=== PATIENT | female | born 1960 | race Caucasian/White ===

== ENCOUNTER 2021-07-13 09:29 | Day surgery (SDC) | payer BC ==
[~2021-07-13] VITALS: Ht 162.6 cm; Wt 76.0 kg
[~2021-07-13 09:29] MED LIST: CLINDAMYCIN 600MG PREMIX 50 ML IV PRN; CLINDAMYCIN 900MG PREMIX 50 ML IV PRN; CLINDAMYCIN PREMIX 900 MG/50 ML BAG IV ONE; HYDROmorphone 2 MG/ML INJ. IVP PRN; IV RINGERS,LACTATED 1000ML 1,000 ML IV SCH; MORPHINE SULFATE 2 MG/ML INJ. IVP PRN; PROCHLORPERAZINE 10 MG/2 ML VIAL. IVP PRN; fentaNYL PF VIAL 100 MCG/2 ML VIAL IVP PRN
[2021-07-13 09:52] VITALS: BP 133/66
[2021-07-13] MEDS ORDERED: FLUT9.9S NS (09:57)
[2021-07-13] MEDS ORDERED: ZOLP5TAB5 PO (09:57)
[2021-07-13] MEDS ORDERED: RIVA20TA2 PO (09:57)
[2021-07-13] MEDS ORDERED: TIZA-75 PO (09:57)
[2021-07-13] MEDS ORDERED: SULF500T36 PO (09:57)
[2021-07-13] MEDS ORDERED: FOLI0.8T5 PO (09:57)
[2021-07-13] MEDS ORDERED: OLAN1CAP15 PO (09:57)
[2021-07-13] MEDS ORDERED: AMLO-186 PO (09:57)
[2021-07-13] MEDS ORDERED: LEVO75TA5 PO (09:57)
[2021-07-13] MEDS ORDERED: TRAM50TA PO (09:57)
[2021-07-13] MEDS ORDERED: LOSA-73 PO (09:57)
[2021-07-13] MEDS ORDERED: ICOS1CAP PO (09:57)
[2021-07-13] MEDS ORDERED: CALC500T30 PO (09:58)
[2021-07-13 10:07] LABS: BASO % 1 % (0-3); EOS # 0.2 x10^3/uL (0.0-0.7); EOS % 4 % (0-3); HEMATOCRIT 40.5 % (36.0-47.0); HEMOGLOBIN 14.2 g/dL (12.0-15.5); LYMPH # 1.7 x10^3/uL (1.0-4.8); LYMPH % 37 % (24-48); MEAN CORPUSCULAR HEMOGLOBIN 34 pg (25-35); MEAN CORPUSCULAR HGB CONC 35 g/dL (31-37); MEAN CORPUSCULAR VOLUME 96 fL (79-100); MONO # 0.5 x10^3/uL (0.0-1.1); MONO % 12 % (0-9); NEUT # 2.2 x10^3/uL (1.8-7.7); NEUT % 47 % (31-73); PLATELET COUNT 232 x10^3/uL (140-400); RED CELL DISTRIBUTION WIDTH 13.5 % (11.5-14.5); WHITE BLOOD COUNT 4.7 x10^3/uL (4.0-11.0)
[2021-07-13 10:19] LABS: CALCIUM 9.4 mg/dL (8.5-10.1); CREATININE 0.8 mg/dL (0.6-1.0); GFR 73.2; POTASSIUM 3.8 mmol/L (3.5-5.1)
[2021-07-13 10:25] LABS: ALBUMIN 4.1 g/dL (3.4-5.0); TOTAL BILIRUBIN 0.5 mg/dL (0.2-1.0); TOTAL PROTEIN 8.1 g/dL (6.4-8.2)
[2021-07-13] MEDS ORDERED: DEXAMETHASONE SOD PHOS 4 MG/ML VIAL ONE ×2 (11:01→11:17)
[2021-07-13] MEDS ORDERED: LIDOCAINE 2% PF 5 ML VIAL. ONE (11:01)
[2021-07-13] MEDS ORDERED: PROPOFOL 10 MG/ML (20ML) VIAL. IV ONE (11:01)
[2021-07-13] MEDS ORDERED: SEVOFLURANE 31 TO 60 MINUTES. IH ONE (11:01)
[2021-07-13] MEDS ORDERED: fentaNYL PF VIAL 100 MCG/2 ML VIAL ONE (11:01)
[2021-07-13] MEDS ORDERED: ONDANSETRON PF 4 MG/2 ML VIAL. ONE (11:01)
[2021-07-13] MEDS ORDERED: BUPIVACAINE MPF 0.5% 30 ML VIAL. ONE ×2 (11:02→13:00)
[2021-07-13] MEDS ORDERED: LIDOCAINE 1% Multi-Dose 20 ML VIAL. ONE (11:02)
[2021-07-13] MEDS ORDERED: POVIDONE-IODINE 10% TOPICAL OINTMENT 28GM TUBE. TP ONE (11:17)
[2021-07-13] MEDS ORDERED: PHENYLEPHRINE in 0.9% NACL PF 1 MG/10 ML SYRINGE. IV ONE ×2 (11:43→12:17)
[2021-07-13] MEDS ORDERED: LIDOCAINE 1% Multi-Dose 20 ML VIAL. INJ ONE (11:48)
[2021-07-13] MEDS ORDERED: BUPIVACAINE MPF 0.5% 30 ML VIAL. IJ ONE ×2 (11:48→13:00)
[2021-07-13] MEDS ORDERED: ePHEDrine PF IN SALINE 50 MG/10 ML SYRINGE. IV ONE (12:23)
--- NOTE | 2021-07-13 13:29 | PDOC4 ---
OPERATIVE NOTE: surgeon: Ashutosh Agile Tester: Bernarda Navarrete Pre operative diagnosis: Hallux rigidus right foot Post operative diagnosis: same Procedure: arthrodesis 1st metatarsal phalangeal joint right foot Anesthesia: LMA with local Hemostasis: right ankle tourniquet at 250mmhg EBL 1mL Materials: Medline extra small right MTP plate with 2.7 full threaded cortical screw by 18, 24, 22 locking screws, 2.7x 18mm non locaking, 3.0 x 28mm cannulated compression screw Intra operative findings: note significant loss of cartilage to 1st metatarsal head and dorsal 1/2 of the proximal phalanx hallux base with dorsal loose bodies to the dorsal hallux proximal phalanx base. Patient tolerated both anesthesia and procedure well. Transferred to PACU with VSS and VSI right foot JORDYN COLLIER DPM July 13, 2021 13:29
[2021-07-13] MEDS ORDERED: HYDR-2759 PO (13:37)
[2021-07-13] MEDS ORDERED: HYDROcodone/APAP 5/325MG 1 TAB TABLET PO ONE (14:00)
[2021-07-13 14:05] VITALS: BP 138/59
--- NOTE | 2021-07-13 14:44 | RAD ---
EXAM: XR FOOT_RIGHT 3 VIEWS 07/13/2021 1:32 PM CLINICAL INDICATION: Status post fusion first MPJ COMPARISON: None available TECHNIQUE: AP, oblique, and lateral views of the right foot FINDINGS: There is a plate and screw fixation device and interfragmentary screw traversing the great toe MTP joint. No evidence of hardware complication. No acute fracture. The remaining joint spaces a re maintained. There is scattered soft tissue gas along the great toe with an overlying bandage. IMPRESSION: Immediate postoperative changes of great toe MTP joint arthrodesis. No hardware complica tion. Electronically signed by: Emily Pastrana MD (07/13/2021 2:41 PM) [id number]
[2021-07-13] MEDS ORDERED: HYDR-3068 PO (16:33)
--- NOTE | 2021-07-13 16:38 | OP ---
DATE OF SURGERY: 07/13/2021 PREOPERATIVE DIAGNOSIS: Hallux rigidus, right foot. POSTOPERATIVE DIAGNOSIS: Hallux rigidus, right foot. PROCEDURE: Arthrodesis of first metatarsophalangeal joint, right foot. SURGEON: Dr. Harleen Boykin. CUBE MACHINE TENDER: Bernarda Navarrete. ANESTHESIA: LMA with local. HEMOSTASIS: Right ankle tourniquet at 250 mmHg. ESTIMATED BLOOD LOSS: 1 mL. MATERIALS USED: Medline extra small right metatarsophalangeal joint plate with 2.7 fully threaded cortical screw x 18, 24, and 22 locking screws and a 2.7 x 18 mm nonlocking screw and a 3.0 x 28 mm cannulated compression screw. INDICATIONS: The patient is a 61-year-old female who had painful first metatarsophalangeal joint, right foot. The patient had previous left foot first MPJ arthrodesis approximately 1 year prior, healed well and was starting to feel pain on the right. Conservative treatment of minimal weightbearing, firm-toed shoe, NSAIDs, ice, shoe gear modifications was unsuccessful. All questions were answered. Discussed possible risks, benefits, complications to include overcorrection, under correction, need for further surgery, lack of toe purchase, delayed or nonhealing, infection, delayed or nonunion of the bone, DVT, pulmonary embolism, loss of toe, foot, limb or , damage to nerve or blood vessels, chronic pain, all questions were answered, the patient signed consent freely and put in chart. DESCRIPTION OF PROCEDURE: The patient was transported to the operating room via a cart and placed on the operating table in supine position. Final verification of the patient's surgery and limb was performed. LMA was administered per anesthesia. Timeout was taken to verify the patient, limb, and surgery to be performed. A well-padded tourniquet was placed over the right ankle. Administered a Gordillo block to the right first ray consisting of a 1:1 mixture of 1% lidocaine plain and 0.5% Marcaine plain. The right foot was then prepped and draped in the usual aseptic manner. Esmarch bandage was used to exsanguinate the right foot. The right ankle tourniquet was inflated to 250 mmHg. The 5 cm incision was made medial to the extensor hallucis longus tendon. This incision was deepened to the joint capsule. Small vessels were cauterized and the neurovascular bundle was safely reflected from the surgical site. Linear incision was made to the joint capsule and the joint capsule was then resected from the distal one third of the first metatarsal and the base and shaft of the proximal phalanx. It was noted that there were loose bodies to the dorsal aspect of the proximal phalanx base, this was sharply removed with a rongeur. Noted that significant loss of cartilage to the first metatarsal head as well as the dorsal half of the proximal phalanx hallux base. The guidewire was then drilled through the first metatarsal head and reamers were used to resect the remaining cartilage from the head of the metatarsal and then used to poke holes into the first metatarsal head for enhanced healing. The guidewire was then removed and then was placed into the base of the proximal phalanx. Again, a reamer was used to remove the remaining cartilage of the proximal phalanx base. Next guidewire was removed and then again poked holes into the proximal phalanx base. Next, I used a temporary guidewire to secure the hallux onto the first metatarsal in slight dorsiflexion, slight abduction and noted satisfactory position and then placed a 3.0 headless cannulated screw from the proximal phalanx base to the head of the first metatarsal laterally. Solid fixation was achieved and then applied a midline extra small right metatarsophalangeal joint plate with 2.7 fully threaded cortical screw x 18, 24, and 22 locking screws and then the most proximal screw was the 2.7 x 18 mm nonlocking screw. Note that the previously placed 3.0 cannulated compression screw was 28 mm in length. A C-arm fluoroscopy was utilized to show proper placement and wound was copiously irrigated with sterile saline and the joint capsule was reapproximated with 3-0 Vicryl and the skin was reapproximated with 4-0 nylon. Postop injection was given of 10 mL of 0.5% Marcaine plain, applied Betadine-soaked Adaptic gauze, 4 x 4's, Kerlix bandage, Roshan bandage. The tourniquet was deflated and good perfusion was noted to all digits of the right foot. The patient tolerated both anesthesia and procedure well and was transferred to the PACU with vital signs stable and vascular status intact to the right foot. Follow up in 1 week for dressing change. JOANN/KALIA DR: Marija TID: [id number]
--- NOTE | 2021-07-15 17:07 | PATHOLOGY ---
[facility] Accession Number: [id number] . 01 Material submitted: . METATARSAL - FIRST METATARSAL JOINT LOOSE BODY, RIGHT . 01 Clinical history: . ARTHRODESIS FIRST METATARSOPHALANGEAL JOINT, RIGHT FOOT . 02 Diagnosis: Bone "first metatarsal joint loose body right foot", excision: - Fragments of articular bone with reactive/degenerative features, consistent with degenerative arthritis. - Negative for malignancy. . (MLK:mml; 07/15/2021) [facility] 07/15/2021 1655 Local . 02 Electronically signed: . Dionicio Leggett MD, Pathologist NPI- [id number] . 01 Gross description: . The specimen is received in formalin, labeled "Yolanda Zaidi, first metatarsal joint loose body (right)". Received are multiple segments of pale love-yellow to light pink bony tissue measuring 0.5 x 0.4 x 0.3 cm to 1.5 x 0.6 x 0.6 cm. Sectioning reveals pale love-yellow and solid cut surfaces. The specimen is serially sectioned and submitted entirely in cassette A1 to A2, following decalcification using RDO. ([facility]; 07/14/2021) [facility] 07/14/2021 1754 Local . 02 Pathologist provided ICD-10: M19.071 . 02 CPT . 937756, [id number] Specimen Comment: A courtesy copy of this report has been sent to [phone] Specimen Comment: Report sent to Specimen Comment: A duplicate report has been generated due to demographic updates. Performed at: 01 [facility] [address], [place], [place] [id number] MD Alejandro Saeed MD Phone: [phone] Performed at: [address], [place], [place] [id number] MD Oniel Ortega MD Phone: [phone]
== END 2021-07-13 14:35 | disposition home or self-care (01) ==
LOC: SURG 09:29
PROVIDERS: ATTEND Podiatrist Foot & Ankle Surgery
DX: M20.21 Hallux rigidus, right foot (principal); G47.30 Sleep apnea, unspecified; I10 Essential (primary) hypertension; K21.9 Gastro-esophageal reflux disease without esophagitis; M06.9 Rheumatoid arthritis, unspecified; E03.9 Hypothyroidism, unspecified; Z79.899 Other long term (current) drug therapy; Z98.890 Other specified postprocedural states; Z72.89 Other problems related to lifestyle; Z88.0 Allergy status to penicillin; Z88.1 Allergy status to other antibiotic agents; Z88.8 Allergy status to other drugs, medicaments and biological substances
CPT/HCPCS: 28750; 36415; 73630; 80053; 85025; 88305; 88311; A4930; A6223; A6255; A6402; A6449; C1713; C1769; J1100; J2370; J2405; J2704; J3010; J3490; A4657; A6443